=== PATIENT | female | born 1970 | race Asian ===

== ENCOUNTER 2018-07-23 14:30 | Inpatient (IN) | payer OTHER ==
[~2018-07-23] VITALS: Ht 152.4 cm; Wt 49.0 kg
--- NOTE | 2018-07-23 14:48 | NUR ---
[facility] FROM [facility]. PT WITH C/O COUGH, CONGESTION X 1 WEEK ON CEFUROXIME W/O IMPROVEMENT. SOB INCREASED TODAY AND PRESENTED TO WITH SPO2 OF 70% ON RA. REC'D DUO NEB TREATMENT AND 125MG OF SOLUMEDROL, WAS PLACED ON 02 4L NC ALL WITH EFFECT. PT NOW PRESENTS VSS, SP02 = 96% ON 3L NC. ALL MONITORS PLACED AND EKG COMPLETED. DR. GARCIA AT BEDSIDE, PT ASSESSMENT AND POC REVIEWED AND QUESTIONS ANSWERED. CALL LIGHT W/I REACH
[2018-07-23] MEDS ORDERED: ALBUTEROL/IPRATROPIUM 2.5MG/0.5MG, 3 ML NPPB SCH (15:00)
[2018-07-23] MEDS ORDERED: methylPREDNISolone SOD SUCC 125 MG/2 ML IVP ONE (15:00)
[2018-07-23] MEDS ORDERED: SODIUM CHLORIDE FLUSH 10ML SYR IVF ONE (15:00)
[2018-07-23] MEDS ORDERED: ALBUTEROL/IPRATROPIUM 2.5MG/0.5MG, 3 ML ONE (15:19)
[2018-07-23] MEDS ORDERED: ALBUTEROL SULFATE 2.5MG/0.5ML ONE (15:19)
[2018-07-23] MEDS ORDERED: ALBUTEROL SULFATE 2.5 MG/3 ML NPPB ONE (15:20)
[2018-07-23] MEDS ORDERED: ALBUTEROL/IPRATROPIUM 2.5MG/0.5MG, 3 ML NEB ONE (15:20)
[2018-07-23] MEDS ORDERED: ALBUTEROL SULFATE 2.5 MG/3 ML NPPB PRN (15:30)
[2018-07-23 15:32] LABS: BASOPHILS # (AUTO) 0.05 x10^3/uL (0-0.1); BASOPHILS % (AUTO) 1 % (0-1); EOSINOPHILS # (AUTO) 0.44 x10^3/uL (0-0.4); EOSINOPHILS % (AUTO) 4 % (1-7); LYMPHOCYTES # (AUTO) 1.07 x10^3/uL (1-3.4); LYMPHOCYTES % (AUTO) 10 % (22-44); MD NO; MEAN CORPUSCULAR HEMOGLOBIN 30.7 pg (27.0-34.8); MEAN CORPUSCULAR HGB CONC 33.1 g/dL (32.4-35.8); MEAN CORPUSCULAR VOLUME 92.9 fL (80-100); MEAN PLATELET VOLUME 8.3 fL (7.4-10.4); MONOCYTES # (AUTO) 0.05 x10^3/uL (0.2-0.8); MONOCYTES % (AUTO) 1 % (2-9); NEUTROPHILS # (AUTO) 8.82 x10^3/uL (1.8-6.8); NEUTROPHILS % (AUTO) 85 % (42-75); PLATELET COUNT 259 x10^3/uL (130-400); RED BLOOD COUNT 5.15 x10^6/uL (3.82-5.3); RED CELL DISTRIBUTION WIDTH 13.3 % (9.6-15.2)
[2018-07-23 15:40] LABS: INTERNATIONAL NORMALIZED RATIO 1.02 (0.93-1.1); PROTHROMBIN TIME 10.7 Seconds (9.6-11.5)
[2018-07-23 15:41] LABS: ALBUMIN 4.3 g/dL (3.4-5.0); ANION GAP 9 mmol/L (5-15); CHLORIDE 107 mmol/L (98-107); CREATININE 0.65 mg/dL (0.55-1.02)
[2018-07-23 15:45] LABS: TROPONIN I < 0.015 ng/mL (0.000-0.045)
[2018-07-23] MEDS ORDERED: OMNIPAQUE 350 MG/ML, 100ML BOTTLE ONE (16:12)
--- NOTE | 2018-07-23 16:40 | NUR ---
PT UP TO COMMODE, REMAINING ON OXYGEN AND MONITOR. CONTINUES TO HAVE COUGH AND SOB
--- NOTE | 2018-07-23 17:06 | NUR ---
PT NOTED TO BE 85% ON RA. TURNED OXYGEN TO 1.5 L WITH OXYGEN SATURATION IMPROVEMENT TO 93%
--- NOTE | 2018-07-23 17:25 | NUR ---
MD SPEAKING WITH PT AND FAMILY ABOUT ADMISSION WITH QUESTIONS ANSWERED.
--- NOTE | 2018-07-23 18:02 | NUR ---
REPORT TO [facility]. PT WAITING TO BE TRANSFERRED TO FLOOR
[2018-07-23] MEDS ORDERED: SODIUM CHLORIDE FLUSH 10ML SYR IVF PRN (18:30)
[2018-07-23] MEDS ORDERED: GUAIFENESIN/DM 200-20MG, 10ML UDC PO PRN (18:30)
[2018-07-23] MEDS ORDERED: POLYETHYLENE GLYCOL 17 GM PACKET PO PRN (18:30)
[2018-07-23] MEDS ORDERED: BISACODYL 10 MG SUPP PR PRN (18:30)
[2018-07-23] MEDS ORDERED: ACETAMINOPHEN 325 MG TABLET PO PRN (18:30)
[2018-07-23] MEDS ORDERED: ONDANSETRON ODT 4 MG PO PRN (18:30)
[2018-07-23 19:34] VITALS: BP 121/71
[2018-07-23] MEDS: methylPREDNISolone SOD SUCC 125 MG/2 ML IVPush SCH (21:00)
[2018-07-23] MEDS: SODIUM CHLORIDE FLUSH 10ML SYR IVF SCH (21:01)
[2018-07-23] MEDS ORDERED: ALBUTEROL/IPRATROPIUM 2.5MG/0.5MG, 3 ML NPPB PRN (22:30)
[2018-07-24 01:18] VITALS: BP 122/74
[2018-07-24] MEDS: methylPREDNISolone SOD SUCC 125 MG/2 ML IVPush SCH ×4 (03:08→21:02)
[2018-07-24 05:29] LABS: BASOPHILS % (AUTO) 0 % (0-1); EOSINOPHILS % (AUTO) 0 % (1-7); LYMPHOCYTES # (AUTO) 0.91 x10^3/uL (1-3.4); LYMPHOCYTES % (AUTO) 9 % (22-44); MD NO; MEAN CORPUSCULAR HEMOGLOBIN 30.6 pg (27.0-34.8); MEAN CORPUSCULAR HGB CONC 33.1 g/dL (32.4-35.8); MEAN CORPUSCULAR VOLUME 92.3 fL (80-100); MEAN PLATELET VOLUME 7.9 fL (7.4-10.4); MONOCYTES # (AUTO) 0.07 x10^3/uL (0.2-0.8); MONOCYTES % (AUTO) 1 % (2-9); NEUTROPHILS # (AUTO) 8.87 x10^3/uL (1.8-6.8); NEUTROPHILS % (AUTO) 90 % (42-75); PLATELET COUNT 268 x10^3/uL (130-400); RED BLOOD COUNT 4.82 x10^6/uL (3.82-5.3); RED CELL DISTRIBUTION WIDTH 12.9 % (9.6-15.2)
[2018-07-24 05:40] LABS: ALANINE AMINOTRANSFERASE 21 U/L (12-78); ANION GAP 7 mmol/L (5-15); CHLORIDE 107 mmol/L (98-107); CREATININE 0.55 mg/dL (0.55-1.02)
[2018-07-24 05:43] LABS: ALKALINE PHOSPHATASE 79 U/L (45-117); BILIRUBIN,TOTAL 1.1 mg/dL (0.2-1.0); TOTAL PROTEIN 7.9 g/dL (6.4-8.2)
[2018-07-24 08:00] VITALS: BP 117/69
[2018-07-24] MEDS: SODIUM CHLORIDE FLUSH 10ML SYR IVF SCH ×2 (09:00→21:02)
[2018-07-24] MEDS: SENNA/DOCUSATE TABLET PO SCH (09:00)
[2018-07-24 14:00] VITALS: BP 132/78
[2018-07-24] MEDS ORDERED: AZITHROMYCIN 500 MG in SODIUM CHLORIDE 0.9% 250 ML IV SCH (16:30)
[2018-07-24] MEDS: GUAIFENESIN 200 MG TABLET PO SCH ×2 (17:00→21:00)
[2018-07-24] MEDS: CEFTRIAXONE PMX 1GM/50ML 50 ML IV SCH (17:21)
[2018-07-24 18:16] LABS: RAPID INFLUENZA A Negative (Negative); RAPID INFLUENZA B Negative (Negative)
[2018-07-24 18:37] VITALS: BP 137/86
[2018-07-25 01:30] VITALS: BP 124/65
[2018-07-25] MEDS: methylPREDNISolone SOD SUCC 125 MG/2 ML IVPush SCH ×4 (03:05→21:23)
[2018-07-25] MEDS: GUAIFENESIN 200 MG TABLET PO SCH ×4 (05:32→21:23)
[2018-07-25 05:50] LABS: MEAN CORPUSCULAR HEMOGLOBIN 30.7 pg (27.0-34.8); MEAN CORPUSCULAR HGB CONC 32.9 g/dL (32.4-35.8); MEAN CORPUSCULAR VOLUME 93.2 fL (80-100); MEAN PLATELET VOLUME 8.2 fL (7.4-10.4); PLATELET COUNT 259 x10^3/uL (130-400); RED BLOOD COUNT 4.57 x10^6/uL (3.82-5.3); RED CELL DISTRIBUTION WIDTH 13.1 % (9.6-15.2)
[2018-07-25 06:09] LABS: CHLORIDE 110 mmol/L (98-107)
[2018-07-25 06:16] LABS: ALANINE AMINOTRANSFERASE 18 U/L (12-78); ALBUMIN 3.8 g/dL (3.4-5.0); ALKALINE PHOSPHATASE 71 U/L (45-117); ANION GAP 6 mmol/L (5-15); BILIRUBIN,TOTAL 0.8 mg/dL (0.2-1.0); CALCIUM 8.4 mg/dL (8.5-10.1); CREATININE 0.65 mg/dL (0.55-1.02); TOTAL PROTEIN 7.3 g/dL (6.4-8.2)
[2018-07-25 06:19] LABS: BASOPHILS % (AUTO) 0 % (0-1); EOSINOPHILS % (AUTO) 0 % (1-7); LYMPHOCYTES # (AUTO) 0.66 x10^3/uL (1-3.4); LYMPHOCYTES % (AUTO) 3 % (22-44); MD SCAN; MONOCYTES # (AUTO) 0.25 x10^3/uL (0.2-0.8); MONOCYTES % (AUTO) 1 % (2-9); NEUTROPHILS # (AUTO) 19.45 x10^3/uL (1.8-6.8); NEUTROPHILS % (AUTO) 96 % (42-75)
[2018-07-25 06:56] VITALS: BP 128/68
[2018-07-25] MEDS ORDERED: ALBUTEROL/IPRATROPIUM 2.5MG/0.5MG, 3 ML NPPB SCH (07:00)
[2018-07-25] MEDS: SODIUM CHLORIDE FLUSH 10ML SYR IVF SCH ×2 (09:00→21:24)
[2018-07-25] MEDS: SENNA/DOCUSATE TABLET PO SCH (09:00)
[2018-07-25 13:25] VITALS: BP 121/75
[2018-07-25] MEDS: CEFTRIAXONE PMX 1GM/50ML 50 ML IV SCH (16:59)
[2018-07-25] MEDS: DOXYCYCLINE 100 MG in DEXTROSE 5% 250 ML IV SCH (18:16)
[2018-07-25 19:41] VITALS: BP 142/81
[2018-07-26 01:09] VITALS: BP 137/78
[2018-07-26] MEDS: methylPREDNISolone SOD SUCC 125 MG/2 ML IVPush SCH ×2 (03:08→10:39)
[2018-07-26 05:19] LABS: MEAN CORPUSCULAR HEMOGLOBIN 29.4 pg (27.0-34.8); MEAN CORPUSCULAR HGB CONC 31.8 g/dL (32.4-35.8); MEAN CORPUSCULAR VOLUME 92.6 fL (80-100); MEAN PLATELET VOLUME 8.1 fL (7.4-10.4); PLATELET COUNT 276 x10^3/uL (130-400); RED BLOOD COUNT 4.73 x10^6/uL (3.82-5.3); RED CELL DISTRIBUTION WIDTH 13.3 % (9.6-15.2)
[2018-07-26 05:35] LABS: ALBUMIN 3.7 g/dL (3.4-5.0); ANION GAP 5 mmol/L (5-15); CALCIUM 8.5 mg/dL (8.5-10.1); CHLORIDE 108 mmol/L (98-107)
[2018-07-26 05:40] LABS: ALANINE AMINOTRANSFERASE 24 U/L (12-78); ALKALINE PHOSPHATASE 79 U/L (45-117); BILIRUBIN,TOTAL 0.8 mg/dL (0.2-1.0); CREATININE 0.68 mg/dL (0.55-1.02); TOTAL PROTEIN 7.4 g/dL (6.4-8.2)
[2018-07-26] MEDS: GUAIFENESIN 200 MG TABLET PO SCH ×2 (05:52→10:41)
[2018-07-26] MEDS: DOXYCYCLINE 100 MG in DEXTROSE 5% 250 ML IV SCH (05:52)
[2018-07-26 06:09] LABS: BASOPHILS # (AUTO) 0.01 x10^3/uL (0-0.1); BASOPHILS % (AUTO) 0 % (0-1); EOSINOPHILS % (AUTO) 0 % (1-7); LYMPHOCYTES # (AUTO) 0.74 x10^3/uL (1-3.4); LYMPHOCYTES % (AUTO) 4 % (22-44); MD SCAN; MONOCYTES # (AUTO) 0.25 x10^3/uL (0.2-0.8); MONOCYTES % (AUTO) 1 % (2-9); NEUTROPHILS # (AUTO) 19.41 x10^3/uL (1.8-6.8); NEUTROPHILS % (AUTO) 95 % (42-75)
[2018-07-26 07:05] VITALS: BP 146/86
[2018-07-26] MEDS ORDERED: CEFD300C37 PO (08:23)
[2018-07-26] MEDS ORDERED: DOXY100C2 PO (08:23)
[2018-07-26] MEDS ORDERED: PRED10TA PO (08:25)
[2018-07-26] MEDS ORDERED: GUAI200T3 PO (08:25)
[2018-07-26] MEDS: SENNA/DOCUSATE TABLET PO SCH (09:00)
[2018-07-26] MEDS: SODIUM CHLORIDE FLUSH 10ML SYR IVF SCH (10:39)
[2018-07-26 12:05] VITALS: BP 149/85
[2018-07-26] MEDS ORDERED: ALBUTEROL SULFATE 2.5 MG/3 ML ONE (12:30)
== END 2018-07-26 16:27 | disposition home or self-care (01) | DRG 193 ==
LOC: ED 15:57 → EDIP 17:22 → 3NE 18:47 → DCLOUNGE 07-26 16:11
PROVIDERS: ADMIT Internal Medicine; ATTEND Internal Medicine
DX: J18.9 Pneumonia, unspecified organism (principal); J96.01 Acute respiratory failure with hypoxia; I27.20 Pulmonary hypertension, unspecified; J20.9 Acute bronchitis, unspecified; R00.0 Tachycardia, unspecified; T17.990A Other foreign object in respiratory tract, part unspecified in causing asphyxiation, initial encounter
CPT/HCPCS: 36415; 84145; 87400; 99285; J7613; J7620; 71275; 80048; 80053; 82040; 83605; 83735; 83880; 84100; 84484; 85025; 85610; 85730; 87040; 87070; 87205; 93005; 93306; 94640; 96365; G0378; J0456; J0696; J7060; Q9967; J2930; J7050